=== PATIENT | male | born 1960 | race African-American/Black ===

== ENCOUNTER 2022-08-03 07:50 | Outpatient (CLI) | payer BC | END 2022-08-03 07:51 | disposition home or self-care (01) | LOC: SCSRAD 07:50 | PROVIDERS: ATTEND Nurse Practitioner Family | DX: M79.672 Pain in left foot (principal) ==

== ENCOUNTER 2023-01-22 08:32 | Outpatient (CLI) | payer BC | END 2023-01-22 08:33 | disposition home or self-care (01) | LOC: SCSRAD 08:32 | PROVIDERS: ATTEND Nurse Practitioner Family | DX: M25.562 Pain in left knee (principal) ==

== ENCOUNTER 2023-02-20 08:16 | Outpatient (CLI) | payer BC | END 2023-02-20 08:17 | disposition home or self-care (01) | LOC: MRI 08:16 | PROVIDERS: ATTEND Nurse Practitioner Family | DX: M25.362 Other instability, left knee (principal); M25.562 Pain in left knee; M22.2X2 Patellofemoral disorders, left knee ==